=== PATIENT | male | born 1975 | race African-American/Black ===

== ENCOUNTER 2016-10-28 22:54 | Emergency (ER) | payer OTHER ==
[~2016-10-28] VITALS: Ht 182.9 cm; Wt 99.8 kg
[~2016-10-28 22:54] MED LIST: ACETAMINOPHEN-1 EAC1 PO; AMLODIPINE BESY10 MG PO; AMOXIL 875 MG875 M2 PO; AUGMENTIN 875875 MG PO; BACTRIM DS TAB1 EACH PO; CLOTRIMAZOLE-BE15 GM TOP; DOXYCYCLINE 10100 MG PO; FLEXERIL PO; IBUPROFEN 600600 M1 PO; KEFLEX500 MG PO; LISINOPRIL10 MG PO; LISINOPRIL20 MG PO; MINOCIN100 MG PO; NAPROSYN500 MG PO; NOHOMEMEDICATIONS; NORCO 5-325 TA1 EACH PO; PERCOCET 5-3251 EACH PO; PERCOCET PO; PHENERGAN-CODE120 ML PO; TRAMADOL 50 MG50 MG PO; TRINATAL GT TA1 EACH PO; TRINATE TABLET1 TAB PO; TYLENOL325 MG PO; ULTRAM 50MG TAB50 MG PO; UNICOMPLEX M TA1 TA1 PO; VITAMIN B-1100 M1 PO; ZPAK PO; [UNRECOGNIZED DRUG - REMARK]
== END 2016-10-29 00:32 | disposition home or self-care (01) ==
LOC: ER 22:54
DX: S51.802A Unspecified open wound of left forearm, initial encounter (principal); R60.9 Edema, unspecified; I10 Essential (primary) hypertension; F17.210 Nicotine dependence, cigarettes, uncomplicated; F15.10 Other stimulant abuse, uncomplicated; Z88.6 Allergy status to analgesic agent; W57.XXXA Bitten or stung by nonvenomous insect and other nonvenomous arthropods, initial encounter; Y93.89 Activity, other specified; Y92.89 Other specified places as the place of occurrence of the external cause; Y99.8 Other external cause status

== ENCOUNTER 2017-01-07 23:27 | Emergency (ER) | payer OTHER ==
[~2017-01-07] VITALS: Ht 172.7 cm; Wt 68.0 kg
[~2017-01-07 23:27] MED LIST changes: +FUROSEMIDE 20 M20 MG PO; +HYDROCODONE-AP1 EAC6 PO; +IBUPROFEN 800800 M1 PO; +LASIX 20 MG TAB20 MG; +LISINOPRIL20 MG
[2017-01-07] MEDS ORDERED: KEFLEX500 MG PO (23:38)
== END 2017-01-08 00:39 | disposition home or self-care (01) ==
LOC: ER 23:27
DX: L03.116 Cellulitis of left lower limb (principal); I10 Essential (primary) hypertension; F17.210 Nicotine dependence, cigarettes, uncomplicated; F10.99 Alcohol use, unspecified with unspecified alcohol-induced disorder; F15.10 Other stimulant abuse, uncomplicated; Z88.6 Allergy status to analgesic agent

== ENCOUNTER 2017-02-03 18:22 | Emergency (ER) | payer OTHER ==
[~2017-02-03] VITALS: Ht 182.9 cm; Wt 106.6 kg
[2017-02-03] MEDS ORDERED: NAPROSYN500 MG PO (20:31)
== END 2017-02-03 21:49 | disposition home or self-care (01) ==
LOC: ER 18:22
DX: M16.0 Bilateral primary osteoarthritis of hip (principal); F15.10 Other stimulant abuse, uncomplicated; I10 Essential (primary) hypertension; F17.210 Nicotine dependence, cigarettes, uncomplicated; F10.99 Alcohol use, unspecified with unspecified alcohol-induced disorder; Z88.6 Allergy status to analgesic agent

== ENCOUNTER 2017-03-12 02:06 | Emergency (ER) | payer OTHER ==
[~2017-03-12] VITALS: Ht 182.9 cm; Wt 86.2 kg
--- NOTE | ~2017-03-12 | EKG ---
[place] [address] [facility] [place] [address] ELECTROCARDIOGRAM REPORT Name: MARCELLEKELVIN Room #: [facility]#: [id number] Admission: 03/12/17 Attend Phys: Discharge: 03/12/17 Date of : 73 Report #: [id number] THIS REPORT FOR: //name// 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
[2017-03-12 03:00] LABS: HEMOGLOBIN 13.2 gm/dL (14.0-18.0); MCH 35.7 pg (26.0-34.0); MCV 108.2 fL (80.0-100.0); PLATELET COUNT 123 thou/uL (150-400); WBC 4.3 thou/uL (4.0-11.0)
[2017-03-12 03:01] LABS: MANUAL DIFF YES
[2017-03-12 03:09] LABS: ANION GAP 10 mmol/L (7-16); BUN 8 mg/dL (7-18); CALCIUM 8.8 mg/dL (8.5-10.1); CHLORIDE 103 mmol/L (98-107); CO2 27 mmol/L (21-32); CREATININE 0.9 mg/dL (0.7-1.3); GLUCOSE 158 mg/dL (74-106); POTASSIUM 3.2 mmol/L (3.5-5.1); SODIUM 140 mmol/L (136-145)
[2017-03-12 03:17] LABS: ALBUMIN 3.3 g/dL (3.4-5.0); ALKALINE PHOSPHATASE 92 U/L (46-116); MAGNESIUM 1.9 mg/dL (1.8-2.4); SGOT 141 U/L (15-37); SGPT 66 U/L (30-65); TOTAL BILIRUBIN 0.4 mg/dL (<0.1-1.0); TOTAL PROTEIN 7.8 g/dL (6.4-8.2); TROPONIN-I < 0.04 ng/mL (<0.04-0.07)
[2017-03-12 03:18] LABS: ABSOLUTE NEUTROPHILS 1.2 thou/uL (1.4-8.2); TOTAL CELL COUNT 100
[2017-03-12 03:19] LABS: MACROCYTES 2+
[2017-03-12] MEDS ORDERED: NAPROSYN500 MG PO (03:54)
== END 2017-03-12 06:25 | disposition home or self-care (01) ==
LOC: ER 02:06
PROVIDERS: Emergency Medicine
DX: G89.29 Other chronic pain (principal); M25.552 Pain in left hip; R60.0 Localized edema; F10.129 Alcohol abuse with intoxication, unspecified; D64.9 Anemia, unspecified; E87.6 Hypokalemia; D69.6 Thrombocytopenia, unspecified; I10 Essential (primary) hypertension; F17.210 Nicotine dependence, cigarettes, uncomplicated

== ENCOUNTER 2017-05-27 15:03 | Emergency (ER) | payer OTHER ==
[~2017-05-27] VITALS: Ht 182.9 cm; Wt 108.9 kg
[2017-05-27 15:05] VITALS: BP 139/86
== END 2017-05-27 17:56 | disposition home or self-care (01) ==
LOC: ER 15:03
DX: T14.8XXA Other injury of unspecified body region, initial encounter (principal); M25.561 Pain in right knee; M25.532 Pain in left wrist; F17.210 Nicotine dependence, cigarettes, uncomplicated; I10 Essential (primary) hypertension; F10.920 Alcohol use, unspecified with intoxication, uncomplicated; W19.XXXA Unspecified fall, initial encounter; Y93.89 Activity, other specified; Y92.89 Other specified places as the place of occurrence of the external cause; Y99.8 Other external cause status

== ENCOUNTER 2017-07-29 15:51 | Emergency (ER) | payer OTHER ==
[~2017-07-29] VITALS: Ht 182.9 cm; Wt 90.7 kg
[2017-07-29 16:19] VITALS: BP 142/85
== END 2017-07-29 17:29 | disposition home or self-care (01) ==
LOC: ER 15:51
DX: G89.29 Other chronic pain (principal); M25.551 Pain in right hip; I10 Essential (primary) hypertension; F17.210 Nicotine dependence, cigarettes, uncomplicated

== ENCOUNTER 2017-08-18 17:25 | Inpatient (IN) | payer OTHER ==
[~2017-08-18] VITALS: Ht 182.9 cm; Wt 107.5 kg
--- NOTE | ~2017-08-18 | HC ---
[facility] [place] [address] CONSULTATION Name: KELVIN IBANEZ Room #: 459-P ADM IN M.R.#: [id number] Admission: 08/18/17 Attend Phys: Isaac Lopez MD Discharge: Date of : 73 Report #: [id number] THIS REPORT FOR: //name// CC: NANETTE physician/PCP Isaac Lopez DATE OF SERVICE: 08/19/2017 INFECTIOUS DISEASE CONSULTATION ATTENDING PHYSICIAN: Isaac Lopez MD REASON FOR EVALUATION: Left distal lower extremity inflammatory eruption, probably multifactorial including infectious component. HISTORY OF PRESENT ILLNESS: Chart reviewed, patient examined. This is a 42-year-old gentleman with a history of recurrent skin and soft tissue infections involving his left lower extremity. He does have a tinea pedis. He does have a degree of neuropathy as well. He is not diabetic. 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 His living situation is somewhat unclear. He notes it has been several months to years since he was last hospitalized here dating back to 2014. He noted over the last several days, he had increasing pain and itching associated with the foot, it became progressive, subsequently evaluated and then admitted, felt to have a component of cellulitis. He was started on broad-spectrum antimicrobial therapy with vancomycin. 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 Not clearly he has had any fevers. Denies pulmonary or gastrointestinal related complaints. ALLERGIES: None known. MEDICINES: Include clotrimazole topically, famotidine, vancomycin, enoxaparin, oxycodone, ondansetron. PAST MEDICAL HISTORY: In addition to the above, some hypertension, depression. SOCIAL HISTORY: Smokes cigarettes on a daily basis, fairly regular ethanol, utilizes marijuana. FAMILY HISTORY: Noncontributory. REVIEW OF SYSTEMS: As above. PHYSICAL EXAMINATION: GENERAL: He is pleasant, alert, cooperative, appears somewhat chronically ill, though he is not overtly undernourished. VITAL SIGNS: Temperature 98.5, pulse 62, respirations 18, blood pressure [facility] [address] [place] [address] CONSULTATION Name: KELVIN IBANEZ Room #: [facility].#: [id number] Admission: 08/18/17 Attend Phys: Isaac Lopez MD Discharge: Date of : 73 Report #: [id number] 153/96. SKIN: Warm. HEENT: Unremarkable. LUNGS: Generally clear. HEART: Regular. ABDOMEN: Soft, nontender. EXTREMITIES: Left lower extremity distal has an inflammatory eruption that certainly consistent with tinea pedis, so concomitant erythrodermic type rash involving his foot and distal leg is tender. He does have good palpable pulses. GENITOURINARY: Deferred. RECTAL: Deferred. LABORATORY DATA: Electrolytes: Sodium 140, potassium 3.4, chloride 105, bicarbonate is 28, anion gap of 7, BUN and creatinine 11 and 1.0, estimated GFR is 99. Plain film of the foot, soft tissue swelling, no bony abnormality. CBC: White count of 4.2, H and H 13.7 and 40.2, platelets of 126. Venous Doppler of the lower extremities bilaterally showed no evidence of DVT. CRP of less than 2.0. Lactic acid 3.0. Hepatic function, AST of 212, ALT of 114, total protein of 7, albumin of 3.0. Culture collected from the site is pending. Gram stain showed gram-negative rods as well as gram-positive cocci. ASSESSMENT AND PLAN: Distal left lower extremity inflammatory eruption, likely multifactorial. Agree with antifungal treatments. We will see how he responds to that and may need systemic also antibacterial may well be polymicrobial. Obviously for gram-positive coverage, we will add second agent for gram-negative coverage. Secondly, he has a hepatitis unclear etiology, certainly given his past, we take the opportunity to exclude history of viral hepatitis disease. <ELECTRONICALLY SIGNED> By: Omar Adler MD 08/20/17 0756 09 22 Omar Adler MD /nt
[2017-08-18 17:34] VITALS: BP 120/81
[2017-08-18 18:01] LABS: HEMATOCRIT 40.2 % (42.0-52.0); HEMOGLOBIN 13.7 gm/dL (14.0-18.0); MCH 36.2 pg (26.0-34.0); MCV 106.6 fL (80.0-100.0); PLATELET COUNT 126 thou/uL (150-400); RBC 3.77 mil/uL (4.50-6.00); RDW 15.7 % (10.5-14.5); WBC 4.2 thou/uL (4.0-11.0)
[2017-08-18 18:07] LABS: CALCIUM 9.4 mg/dL (8.5-10.1); POTASSIUM 3.4 mmol/L (3.5-5.1)
[2017-08-18 18:33] LABS: ABSOLUTE NEUTROPHILS 1.8 thou/uL (1.4-8.2); MACROCYTES 1+
[2017-08-18 19:43] VITALS: BP 120/81
[2017-08-18 20:24] VITALS: BP 156/87
[2017-08-19 00:19] LABS: DIRECT BILIRUBIN 0.2 mg/dL (<0.1-0.3); TOTAL BILIRUBIN 0.4 mg/dL (<0.1-1.0)
[2017-08-19 04:11] VITALS: BP 152/97
[2017-08-19 08:00] VITALS: BP 137/94
[2017-08-19 16:00] VITALS: BP 153/96
[2017-08-19 22:33] VITALS: BP 182/110
[2017-08-20 04:15] VITALS: BP 148/103
[2017-08-20 04:30] LABS: CALCIUM 8.4 mg/dL (8.5-10.1); CREATININE 0.8 mg/dL (0.7-1.3); POTASSIUM 3.5 mmol/L (3.5-5.1)
[2017-08-20 05:59] LABS: HEMATOCRIT 37.5 % (42.0-52.0); HEMOGLOBIN 12.4 gm/dL (14.0-18.0); MCH 35.5 pg (26.0-34.0); MCHC 33.1 g/dL (28.0-37.0); MCV 107.3 fL (80.0-100.0); RBC 3.5 mil/uL (4.50-6.00); RDW 15.2 % (10.5-14.5); WBC 3.8 thou/uL (4.0-11.0)
[2017-08-20 09:42] VITALS: BP 159/110
[2017-08-20] MEDS ORDERED: KEFLEX500 M1 PO (14:00)
[2017-08-20] MEDS ORDERED: TRIAMCINOLONE A80 G2 TOP (14:01)
[2017-08-20] MEDS ORDERED: BACTRIM DS TAB1 EACH PO (14:01)
[2017-08-20] MEDS ORDERED: CLOTRIMAZOLE 1%15 G1 TOP (14:01)
[2017-08-20 14:19] VITALS: BP 159/110
[2017-08-20] MEDS ORDERED: PERCOCET PO (15:07)
[2017-08-21 15:07] LABS: HAV IgM AB (ANTI-HAV IgM) Negative (Negative); HEPATITIS B SURFACE AG Negative (Negative); HEPATITIS C VIRUS AB <0.1 (0.0-0.9)
== END 2017-08-20 19:44 | disposition home or self-care (01) | DRG 603 ==
LOC: ER 17:25 → EROBS 19:31 → 4S 20:10 → 4W 08-19 12:20
PROVIDERS: Hospitalist; Nurse Practitioner Acute Care; Physician Assistant; Specialist
DX: L03.116 Cellulitis of left lower limb (principal); I10 Essential (primary) hypertension; F17.210 Nicotine dependence, cigarettes, uncomplicated; I87.2 Venous insufficiency (chronic) (peripheral); Z59.0 Homelessness; F32.9 Major depressive disorder, single episode, unspecified
CPT/HCPCS: 10040; 10195

== ENCOUNTER 2017-09-01 00:21 | Emergency (ER) | payer OTHER ==
[~2017-09-01] VITALS: Ht 243.8 cm; Wt 108.9 kg
[~2017-09-01 00:21] MED LIST changes: +CLOTRIMAZOLE 1%15 G1 TOP; +KEFLEX500 M1 PO; +TRIAMCINOLONE A80 G2 TOP
[2017-09-01] MEDS ORDERED: TRIAMCINOLONE A80 G2 TOP (02:10)
[2017-09-01] MEDS ORDERED: BACTRIM DS TAB1 EACH PO (02:10)
[2017-09-01] MEDS ORDERED: CLOTRIMAZOLE 1%15 G1 TOP (02:10)
[2017-09-01] MEDS ORDERED: KEFLEX500 M1 PO (02:10)
== END 2017-09-01 05:30 | disposition home or self-care (01) ==
LOC: ER 00:21
DX: B35.3 Tinea pedis (principal); I10 Essential (primary) hypertension; F17.210 Nicotine dependence, cigarettes, uncomplicated

== ENCOUNTER 2017-10-31 15:47 | Emergency (ER) | payer OTHER ==
[~2017-10-31] VITALS: Ht 182.9 cm; Wt 104.3 kg
[2017-10-31] MEDS ORDERED: BACTRIM DS TAB1 EACH PO (17:18)
[2017-10-31] MEDS ORDERED: KEFLEX500 M1 PO (17:18)
[2017-10-31] MEDS ORDERED: LOTRIMIN AF12 GM TOP (17:18)
[2017-10-31] MEDS ORDERED: MOBIC15 MG PO (17:18)
== END 2017-10-31 18:06 | disposition home or self-care (01) ==
LOC: ER 15:47
DX: B35.3 Tinea pedis (principal); L03.116 Cellulitis of left lower limb; F17.210 Nicotine dependence, cigarettes, uncomplicated; M25.551 Pain in right hip; M25.552 Pain in left hip; M25.561 Pain in right knee; M25.562 Pain in left knee; M79.671 Pain in right foot; I10 Essential (primary) hypertension

== ENCOUNTER 2017-11-05 01:20 | Emergency (ER) | payer OTHER ==
[~2017-11-05] VITALS: Ht 182.9 cm; Wt 106.6 kg
[~2017-11-05 01:20] MED LIST changes: +LOTRIMIN AF12 GM TOP; +MOBIC15 MG PO
[2017-11-05] MEDS ORDERED: IBUPROFEN 600600 M1 PO (03:55)
== END 2017-11-05 04:15 | disposition home or self-care (01) ==
LOC: ER 01:20
DX: M25.551 Pain in right hip (principal); I10 Essential (primary) hypertension; F17.210 Nicotine dependence, cigarettes, uncomplicated; W10.9XXA Fall (on) (from) unspecified stairs and steps, initial encounter; Y93.89 Activity, other specified; Y92.89 Other specified places as the place of occurrence of the external cause; Y99.8 Other external cause status

== ENCOUNTER 2017-12-03 03:36 | Emergency (ER) | payer OTHER ==
[~2017-12-03] VITALS: Ht 182.9 cm; Wt 106.6 kg
[2017-12-03] MEDS ORDERED: NOHOMEMEDICATIONS (03:43)
[2017-12-03] MEDS ORDERED: CLINDAMYCIN HC300 MG PO (04:20)
[2017-12-03] MEDS ORDERED: ATHLETE'S FOOT15 GM TOP (04:20)
[2017-12-03] MEDS ORDERED: TRAMADOL 50 MG50 MG PO (04:57)
== END 2017-12-03 05:12 | disposition home or self-care (01) ==
LOC: ER 03:36
DX: L03.116 Cellulitis of left lower limb (principal); B35.3 Tinea pedis; I10 Essential (primary) hypertension; F17.210 Nicotine dependence, cigarettes, uncomplicated

== ENCOUNTER 2018-11-08 13:09 | Emergency (ER) | payer OTHER ==
[~2018-11-08] VITALS: Ht 182.9 cm; Wt 108.9 kg
[~2018-11-08 13:09] MED LIST changes: +ATHLETE'S FOOT15 GM TOP; +CLINDAMYCIN HC300 MG PO
[2018-11-08] MEDS ORDERED: NAPROSYN500 MG PO (14:56)
[2018-11-08 15:21] VITALS: BP 140/92
== END 2018-11-08 14:58 | disposition home or self-care (01) ==
LOC: ER 13:09
DX: M25.551 Pain in right hip (principal); R10.13 Epigastric pain; R10.11 Right upper quadrant pain; I10 Essential (primary) hypertension; F17.210 Nicotine dependence, cigarettes, uncomplicated

== ENCOUNTER 2020-02-19 22:53 | Inpatient (IN) | payer OTHER ==
[~2020-02-19] VITALS: Ht 182.9 cm; Wt 104.3 kg
[2020-02-19 23:09] VITALS: BP 143/93
[2020-02-20] MEDS ORDERED: ALEVE220 M1 PO ×2 (03:06)
[2020-02-20 08:06] VITALS: BP 148/92
--- NOTE | 2020-02-20 08:12 | NUR ---
ATTEMPTED TO CALL REPORT, WAS ADVISED THAT MARY BLACK WAS WITH PT HAVING ACTIVE CHEST PNB AND WOULD KAREY BACK SOON SHE WAS AVAILABLE, INFORMED CHARGE NURSE MARY QUINONES
[2020-02-20 11:43] VITALS: BP 154/89
--- NOTE | 2020-02-20 13:37 | NUR ---
Admitted patient from the ER due to suspected DVT, fall 4 weeks ago at 9am, transferred to room safely. Admission assessment, history and education done; admission forms signed. A+Ox4. On room air. Vital signs stable. On regular diet- tolerating well; no nausea, no vomiting and no abdominal pain noted. On telemetry; SR-SB; no complains of chest pain, crushing sensation and heaviness. Continent of bowel and bladder, able to go to the toilet with standby assist, able to use urinal as well. No IV noted- inserted IV at R FA- saline locked. Pt complained of pain, no other pain meds prescribed aside from tylenol which pt is refusing- Dr Reed informed. With history of ETOH and recent intake- verified with Dr Reed if to start CIWA monitoring- to start CIWA monitoring- pt scoring 2; no agitataion, signs and symptoms of withdrawal noted. To continue monitoring patient.
[2020-02-20 15:00] VITALS: BP 142/82; BP 154/89
--- NOTE | 2020-02-20 15:02 | NUR ---
TP ADMITTED REALTED TO R SUPERFICIAL FEM DVT. CM REVIEWED CHART AND SPOKE WITH CARE TEAM. CM CALLED AND SPOKE WITH PT THIS AFTERNOON. PT APPEARED TO BE A&O X4. CM ROLE INTRODUCED. PT INDICATED HE LIVES IN AN APARTMENT AT [address] [facility] [address] [address] [place] HE INDICATED THERE IS ELEVATOR ACCESS. PT INDCATED HE HADN'T BEEN USING ANY ASSISTIVE DEVICES PRIOR TO ADMISSION BUT HAD BEEN HAVING TROUBLE COMPLETEING ADLS. PT INDICATED HE HAD BEEN STAYING AT A [facility] WIHT HIS GF PRIOR TO ADMISSION AND THAT HE PLANNED TO GO BACK THERE UPON DC. PT INDICATED HE GOES TO [facility] FOR CARES IN THE COMMUNITY. PT WILL NEED CAB VOUCHER BACK TO EXTENDED STAY AT [address] [place] [address]. CM FILLED 30 DY FREE TRIAL OF ELIQUIS FOR PT THROUGH THE OUTPATIENT PHARMACY HERE AT THE HOSPITAL AND THE NURSE IS TO PROVIDE IT TO PT UPON DC. STELLA NOTIFIED PT THAT HE CAN CONTACT HIS [facility] FOR LABS UPON DC OR CAN GO TO [address] [facility] WALK IN CLINIC M-F.
[2020-02-20] MEDS ORDERED: ELIQUIS5 M1 PO ×2 (15:06)
[2020-02-20 20:19] VITALS: BP 171/85
[2020-02-21 05:54] LABS: HEMATOCRIT 40.5 % (42.0-52.0); HEMOGLOBIN 13.4 gm/dL (14.0-18.0); MCH 32.5 pg (26.0-34.0); MCV 98.4 fL (80.0-100.0); RBC 4.11 mil/uL (4.50-6.00); RDW 17.3 % (10.5-14.5); WBC 5.4 thou/uL (4.0-11.0)
[2020-02-21 05:58] LABS: APTT 33.7 Seconds (24.5-32.8); INR 1.1; PROTIME 11.4 Seconds (9.3-11.4)
[2020-02-21 06:11] LABS: CALCIUM 8.5 mg/dL (8.5-10.1); MAGNESIUM 1.9 mg/dL (1.8-2.4); POTASSIUM 3.6 mmol/L (3.5-5.1)
[2020-02-21 08:29] VITALS: BP 151/97
--- NOTE | 2020-02-21 10:46 | NUR ---
Received awake on bed. Due medications given as prescribed. A+Ox4. On room air. Vital signs stable. On regular diet- tolerating well; no nausea, no vomiting and no abdominal pain. On telemetry; no complains of chest pain, crushing sensation and heaviness; running SB at times. Continent of bowel and bladder, able to use urinal and go to the toilet with standby assist. Falls bundle in place due to history of fall. With SL at L FA. Complained of pain, due PRN pain meds given as prescribed. To continue monitoring patient. Pt seen and examined by Dr Reed- pt for discharge today- a/w orders.
--- NOTE | 2020-02-21 12:15 | NUR ---
ORDERS RECEIVED FOR PT EVAL AND TREAT. Pt LIVES IN [facility] WITH ELEVATOR ACCESS. HAD BEEN STAYING IN EXTENDED STAY [place] WITH HIS GIRLFRIEND AND PLANS TO RETURN THERE. RECENT FALL ABOUT 4 WEEKS AGO THAT HE STATED WAS AN 'ACCIDENT.' DOES NOT USE GAIT AIDS. Pt HAS BEEN UP SBA TO BATHROOM WITH NURSING STAFF Pt IS FALL RISK D/T RECENT FALL. Pt DECLINED NEED FOR PT AT THIS TIME. PLAN IS FOR Pt TO D/C TODAY. Pt HAS R LE SUPERFICIAL FEMORAL DVT AND IS ANTICOAGULATED. ACUTE PT TO SIGN OFF.
[2020-02-21] MEDS ORDERED: ACETAMINOPHEN325 M1 PO ×2 (12:26)
[2020-02-21] MEDS ORDERED: NORCO 7.5-3251 EACH PO ×2 (12:26)
[2020-02-21 12:38] VITALS: BP 151/97
== END 2020-02-21 13:59 | disposition home or self-care (01) | DRG 301 ==
LOC: ER 22:53 → EROBS 02-20 05:14 → 4W 02-20 09:26
PROVIDERS: ADMIT Internal Medicine; ATTEND Internal Medicine
DX: I82.411 Acute embolism and thrombosis of right femoral vein (principal); F10.10 Alcohol abuse, uncomplicated; Y90.9 Presence of alcohol in blood, level not specified; I82.431 Acute embolism and thrombosis of right popliteal vein; F12.10 Cannabis abuse, uncomplicated; F17.210 Nicotine dependence, cigarettes, uncomplicated; I10 Essential (primary) hypertension; Z79.899 Other long term (current) drug therapy
CPT/HCPCS: 10045

== ENCOUNTER 2020-02-22 23:30 | Emergency (ER) | payer OTHER ==
[~2020-02-22] VITALS: Ht 182.9 cm; Wt 103.0 kg
--- NOTE | ~2020-02-22 | EMS ---
[address] [address] EMS Patient Care Report Name: KELVIN IBANEZ Room #: REG KRISTAN Schilling#: [id number] Admission: 02/22/20 Attend Phys: Discharge: Date of : 73 Report #: [id number] THIS REPORT FOR: //name// Report Transmitted: 02/22/2020 23:06 EMS Care Summary [place], [place] Incident [id number] @ 02/22/2020 23:12 Incident Location [address] [place] [address] Patient KELVIN IBANEZ Male, 45 Years 1975 Patient Address [facility] [place] [address] Patient History Other,Deep Vein Thrombosis, Patient Allergies No known allergies, Patient Medications Eliquis, Chief Complaint LEG PAIN AND NAUSEA Disposition Transported No Lights/[place] Dispatch Reason Unknown Problem/Person Down Transported To [facility] Narrative RESPONDED TO UNKNOWN WITH PD EN ROUTE. UPON ARRIVAL PT FOUND STANDING AGAINST BUILDING ALERT AND ORIENTED. PT REPORTS TAKING NEW MEDS OF 2 DAYS AGO AND SAYS HE IS STILL SYMPTOMATIC. PT REPORTS PAIN IN UPPER RIGHT LEG AND NAUSEA.PT REPORTS HX OF BLOOD CLOTS IN LEG. PT BELIEVES HE WAS PRESCRIBED THE WRONG KIND [address] [address] EMS Patient Care Report Name: KELVIN IBANEZ Room #: REG KRISTAN Schilling#: [id number] Admission: 02/22/20 Attend Phys: Discharge: Date of : 73 Report #: [id number] OF MEDICATION(ELIQUIS) AND WANTS TO BE RE EVALUATED. PT WALKED TO [facility] AND VITALS OBTAINED. PT TRANSPORTED TO [facility] WITH NO CHANGE IN CONDITION. PT WALKED TO ED RM 6 AND SAT ON BED. REPORT GIVEN TO NURSE. Initial Vitals @23:20P: 96,R: 14,BP: 116/76,SpO2: 98, @23:27P: 96,R: 14,BP: 145/76,Pain: 4/10,GCS: 15,SpO2: 99,Revised Trauma: 12, Assessments @23:18MENTAL:Person Oriented,Time Oriented,Event Oriented,Place Oriented,SKIN:HEENT:Head/Face: No Abnormalities,Eyes: No Abnormalities,Neck/Airway: No Abnormalities,LUNG SOUNDS:General: Nausea,Left Upper: No Abnormalities,Right Upper: No Abnormalities,Left Lower: No Abnormalities,Right Lower: No Abnormalities,ABDOMEN:General: Nausea,Left Upper: No Abnormalities,Right Upper: No Abnormalities,Left Lower: No Abnormalities,Right Lower: No Abnormalities,PELVIS//GI:No Abnormalities,EXTREMITIES:Left Arm: No Abnormalities,Right Arm: No Abnormalities,Left Leg: No Abnormalities,Right Leg: No Abnormalities,PULSE:NEURO:No Abnormalities,@23:24MENTAL:Place Oriented,Person Oriented,Event Oriented,Time Oriented,SKIN:HEENT:Head/Face: No Abnormalities,Eyes: No Abnormalities,Neck/Airway: No Abnormalities,LUNG SOUNDS:General: No Abnormalities,Left Upper: No Abnormalities,Right Upper: No Abnormalities,Left Lower: No Abnormalities,Right Lower: No Abnormalities,ABDOMEN:General: No Abnormalities,Left Upper: No Abnormalities,Right Upper: No Abnormalities,Left Lower: No Abnormalities,Right Lower: No Abnormalities,PELVIS//GI:No Abnormalities,EXTREMITIES:Right Leg: Other,Left Arm: No Abnormalities,Right Arm: No Abnormalities,Left Leg: No Abnormalities,PULSE:NEURO:No Abnormalities, Impression Extremity Pain Procedures @23:18ALS AssessmentResponse: UnchangedSucceeded Timeline 23:10,Call Received 23:10,Dispatch Notified 23:12,Dispatched 23:14,En Route 23:17,On Scene 23:18,At Patient 23:18,ALS Assessment,Response: UnchangedSucceeded, 23:20,BP: 116/76 M,PULSE: 96,RR: 14 R,SPO2: 98 Ox,ETCO2: ,BG: ,PAIN: ,GCS: , 23:22,Depart Scene 23:27,BP: 145/76 M,PULSE: 96,RR: 14 R,SPO2: 99 Ox,ETCO2: ,BG: ,PAIN: 4,GCS: 15, [address] [address] EMS Patient Care Report Name: KELVIN IBANEZ Room #: REG Tonie#: [id number] Admission: 02/22/20 Attend Phys: Discharge: Date of : 73 Report #: [id number] 23:28,At Destination 23:38,Call Closed Disclaimer v1.1 Copyright 2020 [employer] This EMS Care Summary contains data elements from the applicable legal record (which may be displayed differently). It is designed to provide pertinent information for the following purposes: continuity of care, clinical quality, and state data reporting. The complete legal record is available to ED staff and administrators of the receiving hospital in [email or web address]'s Patient Tracker. All data is provided "as is."
[~2020-02-22 23:30] MED LIST changes: +ACETAMINOPHEN325 M1 PO; +ALEVE220 M1 PO; +ELIQUIS5 M1 PO; +NORCO 7.5-3251 EACH PO
[2020-02-23] MEDS ORDERED: ZOFRAN ODT4 MG PO (01:33)
[2020-02-23 01:51] VITALS: BP 127/76
== END 2020-02-23 02:21 | disposition home or self-care (01) ==
LOC: ER 23:30
DX: I82.411 Acute embolism and thrombosis of right femoral vein (principal); I10 Essential (primary) hypertension; F17.210 Nicotine dependence, cigarettes, uncomplicated; Z79.899 Other long term (current) drug therapy

== ENCOUNTER 2020-04-02 11:38 | Emergency (ER) | payer OTHER ==
[~2020-04-02] VITALS: Ht 182.9 cm; Wt 108.9 kg
[~2020-04-02 11:38] MED LIST changes: +ZOFRAN ODT4 MG PO
[2020-04-02 13:01] LABS: ABSOLUTE NEUTROPHILS 4.6 thou/uL (1.4-8.2); BASOPHILS 1.3 % (0.0-2.0); EOSINOPHILS 2.3 % (0.0-3.0); HEMATOCRIT 40.8 % (42.0-52.0); HEMOGLOBIN 13.5 gm/dL (14.0-18.0); LYMPHOCYTES 28.2 % (24.0-44.0); MCH 33.9 pg (26.0-34.0); MCHC 33.1 g/dL (28.0-37.0); MCV 102.2 fL (80.0-100.0); MONOCYTES 11.5 % (1.0-8.0); PLATELET COUNT 228 thou/uL (150-400); POLYS 56.7 % (36.0-66.0); RBC 3.99 mil/uL (4.50-6.00); RDW 17.3 % (10.5-14.5); WBC 8.1 thou/uL (4.0-11.0)
[2020-04-02 13:05] LABS: CALCIUM 8.4 mg/dL (8.5-10.1); CREATININE 1.2 mg/dL (0.7-1.3); POTASSIUM 3.8 mmol/L (3.5-5.1)
[2020-04-02 13:11] LABS: ALBUMIN 3.7 g/dL (3.4-5.0); TOTAL BILIRUBIN 0.8 mg/dL (0.2-1.0); TOTAL PROTEIN 8.3 g/dL (6.4-8.2)
[2020-04-02 13:12] LABS: APTT 25.2 Seconds (24.5-32.8); PROTIME 10.1 Seconds (9.3-11.4)
[2020-04-02 13:50] LABS: URINE BILIRUBIN NEGATIVE (Negative); URINE BLOOD NEGATIVE (Negative); URINE CLARITY CLEAR; URINE COLOR YELLOW; URINE GLUCOSE-RANDOM* NEGATIVE (Negative); URINE KETONES 1+ (Negative); URINE LEUKOCYTES-REFLEX NEGATIVE (Negative); URINE NITRITE-REFLEX NEGATIVE (Negative); URINE PROTEIN (DIPSTICK) NEGATIVE (Negative); URINE SPECIFIC GRAVITY >= 1.030 (1.005-1.035)
[2020-04-02] MEDS ORDERED: ULTRAM 50MG TAB50 MG PO (13:56)
[2020-04-02 14:02] VITALS: BP 124/70
== END 2020-04-02 14:10 | disposition home or self-care (01) ==
LOC: ER 11:38
PROVIDERS: Nurse Practitioner
DX: S30.0XXA Contusion of lower back and pelvis, initial encounter (principal); M25.551 Pain in right hip; I10 Essential (primary) hypertension; F17.210 Nicotine dependence, cigarettes, uncomplicated; Z79.899 Other long term (current) drug therapy; W11.XXXA Fall on and from ladder, initial encounter; Y93.89 Activity, other specified; Y92.89 Other specified places as the place of occurrence of the external cause; Y99.8 Other external cause status

== ENCOUNTER 2020-07-08 13:07 | Emergency (ER) | payer OTHER ==
[~2020-07-08] VITALS: Ht 195.6 cm; Wt 104.3 kg
[2020-07-08] MEDS ORDERED: ULTRAM 50MG TAB50 MG PO (14:18)
[2020-07-08 14:30] VITALS: BP 156/105
== END 2020-07-08 14:53 | disposition home or self-care (01) ==
LOC: ER 13:07
DX: S22.31XA Fracture of one rib, right side, initial encounter for closed fracture (principal); F17.210 Nicotine dependence, cigarettes, uncomplicated; I10 Essential (primary) hypertension; W01.0XXA Fall on same level from slipping, tripping and stumbling without subsequent striking against object, initial encounter; Y93.89 Activity, other specified; Y92.89 Other specified places as the place of occurrence of the external cause; Y99.9 Unspecified external cause status

== ENCOUNTER 2020-07-13 17:08 | Emergency (ER) | payer OTHER ==
[~2020-07-13] VITALS: Ht 195.6 cm; Wt 104.3 kg
[2020-07-13] MEDS ORDERED: AZITHROMYCIN 2250 MG PO (18:17)
[2020-07-13 19:45] VITALS: BP 117/68
== END 2020-07-13 19:45 | disposition home or self-care (01) ==
LOC: ER 17:08
DX: S22.31XD Fracture of one rib, right side, subsequent encounter for fracture with routine healing (principal); M25.551 Pain in right hip; F10.129 Alcohol abuse with intoxication, unspecified; I10 Essential (primary) hypertension; F17.210 Nicotine dependence, cigarettes, uncomplicated; Z20.828 Contact with and (suspected) exposure to other viral communicable diseases; Z79.899 Other long term (current) drug therapy; W19.XXXA Unspecified fall, initial encounter; Y93.89 Activity, other specified; Y92.89 Other specified places as the place of occurrence of the external cause; Y99.8 Other external cause status; Y90.9 Presence of alcohol in blood, level not specified

== ENCOUNTER 2020-08-01 15:39 | Emergency (ER) | payer OTHER ==
[~2020-08-01] VITALS: Ht 195.6 cm; Wt 104.3 kg
[~2020-08-01 15:39] MED LIST changes: +AZITHROMYCIN 2250 MG PO
[2020-08-01 16:02] LABS: ABSOLUTE NEUTROPHILS 1.9 thou/uL (1.4-8.2); BASOPHILS 1.8 % (0.0-2.0); EOSINOPHILS 1.8 % (0.0-3.0); HEMATOCRIT 43.1 % (42.0-52.0); LYMPHOCYTES 45.7 % (24.0-44.0); MCH 32.6 pg (26.0-34.0); MCHC 32.4 g/dL (28.0-37.0); MCV 100.8 fL (80.0-100.0); MONOCYTES 11.6 % (1.0-8.0); PLATELET COUNT 132 thou/uL (150-400); POLYS 39.1 % (36.0-66.0); RBC 4.28 mil/uL (4.50-6.00); RDW 17.1 % (10.5-14.5)
[2020-08-01 16:11] LABS: CALCIUM 8.5 mg/dL (8.5-10.1); POTASSIUM 3.6 mmol/L (3.5-5.1)
[2020-08-01 18:17] VITALS: BP 160/87
== END 2020-08-01 18:30 | disposition home or self-care (01) ==
LOC: ER 15:39
PROVIDERS: Nurse Practitioner
DX: M79.671 Pain in right foot (principal); I10 Essential (primary) hypertension; F17.210 Nicotine dependence, cigarettes, uncomplicated; Z79.1 Long term (current) use of non-steroidal anti-inflammatories (NSAID); Z79.899 Other long term (current) drug therapy; Z59.0 Homelessness

== ENCOUNTER 2020-11-09 18:25 | Emergency (ER) | payer OTHER ==
[~2020-11-09] VITALS: Ht 165.1 cm; Wt 106.6 kg
[2020-11-09 21:06] LABS: ANION GAP 13 mmol/L (7-16); BUN 11 mg/dL (7-18); CALCIUM 8.8 mg/dL (8.5-10.1); CHLORIDE 105 mmol/L (98-107); CO2 21 mmol/L (21-32); CREATININE 0.8 mg/dL (0.7-1.3); GLUCOSE 75 mg/dL (74-106); POTASSIUM 4.1 mmol/L (3.5-5.1); SODIUM 139 mmol/L (136-145)
[2020-11-09 21:13] LABS: ALBUMIN 2.7 g/dL (3.4-5.0); LIPASE 134 U/L (73-393); SGOT 43 U/L (15-37); SGPT < 6 U/L (30-65); TOTAL BILIRUBIN 0.7 mg/dL (0.2-1.0); TOTAL PROTEIN 7.7 g/dL (6.4-8.2)
[2020-11-09 21:40] LABS: ABSOLUTE NEUTROPHILS 3.3 thou/uL (1.4-8.2); BASOPHILS 1.5 % (0.0-2.0); EOSINOPHILS 3.8 % (0.0-3.0); HEMOGLOBIN 12.6 gm/dL (14.0-18.0); LYMPHOCYTES 27.3 % (24.0-44.0); MCH 35.2 pg (26.0-34.0); MCV 103.6 fL (80.0-100.0); MONOCYTES 13.3 % (1.0-8.0); PLATELET COUNT 125 thou/uL (150-400); POLYS 54.1 % (36.0-66.0); RBC 3.57 mil/uL (4.50-6.00); RDW 14.9 % (10.5-14.5); WBC 6.2 thou/uL (4.0-11.0)
[2020-11-09] MEDS ORDERED: ZOFRAN ODT4 MG PO (21:45)
[2020-11-10 01:00] VITALS: BP 132/68
== END 2020-11-09 23:27 | disposition home or self-care (01) ==
LOC: ER 18:25
PROVIDERS: Emergency Medicine
DX: R11.2 Nausea with vomiting, unspecified (principal); R10.9 Unspecified abdominal pain; M25.559 Pain in unspecified hip; I10 Essential (primary) hypertension; F17.210 Nicotine dependence, cigarettes, uncomplicated; Z86.14 Personal history of Methicillin resistant Staphylococcus aureus infection; Z79.2 Long term (current) use of antibiotics; Z79.899 Other long term (current) drug therapy

== ENCOUNTER 2021-02-27 10:50 | Emergency (ER) | payer OTHER ==
[~2021-02-27] VITALS: Ht 182.9 cm; Wt 104.3 kg
--- NOTE | ~2021-02-27 | EMS ---
[address] [address] EMS Patient Care Report Name: KELVIN IBANEZ Room #: DEP KRISTAN Schilling#: [id number] Admission: 02/27/21 Attend Phys: Discharge: 02/27/21 Date of : 73 Report #: [id number] THIS REPORT FOR: //name// Report Transmitted: 03/02/2021 10:22 EMS Care Summary [place], [place]/[facility] Incident [id number] @ 02/27/2021 10:29 Incident Location [address] [place], [place] [id number] Patient KELVIN IBANEZ Male, 46 Years 1975 Patient Address [address] [id number] Patient History Hypertension (HTN),Substance Abuse,Arthritis,Alcohol Abuse,Hip Replacement, Patient Allergies No known allergies, Patient Medications None Reported, Chief Complaint RIGHT HIP PAIN Disposition Transported No Lights/[place] Dispatch Reason Sick Person Transported To [facility] Narrative UPON ARRIVAL WE FOUND OUR 46 YEAR OLD MALE PATIENT, WITH A HX OF CHRONIC RIGHT HIP PAIN X 10 YEARS, 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 THE PATIENT REQUESTS [facility] [address] [place] [address] EMS Patient Care Report Name: KELVIN IBANEZ Room #: DEP ER Tonie#: [id number] Admission: 02/27/21 Attend Phys: Discharge: 02/27/21 Date of : 73 Report #: [id number] TRANSPORT TO [facility] FOR EVALUATION. Initial Vitals @10:35P: 80,R: 18,BP: 156/85,Pain: 4/10,GCS: 15,SpO2: 94,Revised Trauma: 12, @10:47P: 76,R: 18,BP: 154/80,Pain: 4/10,GCS: 15,SpO2: 95,Revised Trauma: 12, Assessments @10:35MENTAL:Place Oriented,Person Oriented,Event Oriented,Time Oriented,SKIN:HEENT:Eyes: Right Pupil: 4-mm,Eyes: Left Pupil: 4-mm,Head/Face: No Abnormalities,Neck/Airway: No Abnormalities,LUNG SOUNDS:General: No Abnormalities,ABDOMEN:General: No Abnormalities,PELVIS//GI:No Abnormalities,EXTREMITIES:Right Leg: Other,Left Arm: No Abnormalities,Right Arm: No Abnormalities,Left Leg: No Abnormalities,PULSE:Pedal: 2+ Normal,Radial: 2+ Normal,NEURO:No Abnormalities, Impression Extremity Pain Procedures @10:35ALS AssessmentResponse: UnchangedSucceeded Timeline 10:26,Call Received 10:26,Dispatch Notified 10:29,Dispatched 10:30,En Route 10:34,On Scene 10:35,At Patient 10:35,ALS Assessment,Response: UnchangedSucceeded, 10:35,BP: 156/85 M,PULSE: 80,RR: 18 R,SPO2: 94 Ox,ETCO2: ,BG: ,PAIN: 4,GCS: 15, 10:40,Depart Scene 10:47,BP: 154/80 M,PULSE: 76,RR: 18 R,SPO2: 95 Ox,ETCO2: ,BG: ,PAIN: 4,GCS: 15, 10:47,At Destination 10:51,Call Closed Disclaimer v1.1 Copyright 2020 [employer] This EMS Care Summary contains data elements from the applicable legal record (which may be displayed differently). It is designed to provide pertinent information for the following purposes: continuity of care, clinical quality, and state data reporting. The complete legal record is available to ED staff and administrators of the receiving hospital in [place]'s Patient Tracker. All data is provided "as is."
[2021-02-27] MEDS ORDERED: NAPROSYN500 MG PO (13:53)
[2021-02-27] MEDS ORDERED: TESSALON PERLE100 MG PO (13:54)
[2021-02-27 14:06] VITALS: BP 132/84
== END 2021-02-27 14:06 | disposition home or self-care (01) ==
LOC: ER 10:50
PROVIDERS: Emergency Medicine
DX: M13.851 Other specified arthritis, right hip (principal); Z20.822 Contact with and (suspected) exposure to COVID-19; M54.50 Low back pain, unspecified; R05.9 Cough, unspecified; I10 Essential (primary) hypertension; F10.11 Alcohol abuse, in remission; F17.210 Nicotine dependence, cigarettes, uncomplicated

== ENCOUNTER 2021-03-22 00:49 | Emergency (ER) | payer OTHER ==
[~2021-03-22] VITALS: Ht 182.9 cm; Wt 106.6 kg
--- NOTE | ~2021-03-22 | EMS ---
[address] [address] EMS Patient Care Report Name: KELVIN IBANEZ Room #: REG RKISTAN Schilling#: [id number] Admission: 03/22/21 Attend Phys: Discharge: Date of : 73 Report #: [id number] THIS REPORT FOR: //name// Report Transmitted: 03/22/2021 00:41 EMS Care Summary [place], [place] Incident [id number] @ 03/22/2021 00:22 Incident Location [address] [place] [address] Patient KELVIN IBANEZ Male, 46 Years 1975 Patient Address [address] [place], [place] [id number] Patient History Hypertension (HTN),Substance Abuse,Arthritis,Alcohol Abuse,Hip Replacement, Patient Allergies No known allergies, Patient Medications None Reported, Chief Complaint PAIN IN BOTH HIPS Disposition Transported No Lights/[place] Dispatch Reason Sick Person Transported To [facility] Narrative M36 ARRIVED ON SCENE AND FOUND OUR PT WALKING OUT OF A GAS STATION TO THE AMBULANCE. THE PT STATED HE HAD PAIN IN BOTH HIPS THAT HE HAD BEEN EXPERIENCING FOR APPROX. 2 HOURS PRIOR TO CALLING EMS. THE PT STATED HE HAD FALLEN ON SOME STEPS, WHICH IT WAS UNDETERMINED WHEN THIS FALL TOOK PLACE THE PT COULD NOT [address] [address] EMS Patient Care Report Name: KELVIN IBANEZ Room #: [facility] Tonie#: [id number] Admission: 03/22/21 Attend Phys: Discharge: Date of : 73 Report #: [id number] RECALL. THE PT WAS AMBULATORY AND ABLE TO WALK INTO THE AMBULANCE. THE PT WAS ABLE TO SEAT HIMSELF IN THE SEATS OF THE BACK OF THE AMBULANCE WHERE SEATBELTS AND A SURGICAL MASK WERE APPLIED. VITALS TAKEN. WHILE EN ROUTE TO [facility] THE PT WAS UNCHANGED. UPON OUR ARRIVAL AT THE FACILITY THE PT WAS ABLE TO WALK HIMSELF TO THEIR TRIAGE AREA AND SEAT HIMSELF. REPORT GIVEN TO NURSE. Initial Vitals @00:39P: 73,R: 15,BP: 158/135,Pain: 2/10,GCS: 15,SpO2: 97,Revised Trauma: 12, @00:34P: 70,R: 15,BP: 118/78,Pain: 2/10,GCS: 15,SpO2: 98,Revised Trauma: 12, Assessments @00:32MENTAL:Person Oriented,Place Oriented,Event Oriented,Time Oriented,SKIN:HEENT:Head/Face: No Abnormalities,Neck/Airway: No Abnormalities,LUNG SOUNDS:General: No Abnormalities,Left Upper: No Abnormalities,Right Upper: No Abnormalities,Left Lower: No Abnormalities,Right Lower: No Abnormalities,ABDOMEN:General: No Abnormalities,Left Upper: No Abnormalities,Right Upper: No Abnormalities,Left Lower: No Abnormalities,Right Lower: No Abnormalities,PELVIS//GI:Pelvis Other,EXTREMITIES:Capillary Refill: Right Upper: < 2 Sec,Left Leg: DEMETRIUS,Right Leg: DEMETRIUS,Left Arm: No Abnormalities,Right Arm: No Abnormalities,PULSE:Radial: 2+ Normal,NEURO:No Abnormalities, Impression Generalized Weakness Procedures @00:32 ALS Assessment Response: UnchangedSucceeded @00:32 BLS Assessment Response: Unchanged Timeline 00:21,Call Received 00:21,Dispatch Notified 00:22,Dispatched 00:23,En Route 00:31,On Scene 00:32,At Patient 00:32,ALS Assessment,Response: UnchangedSucceeded, 00:32,BLS Assessment,Response: Unchanged 00:34,BP: 118/78 M,PULSE: 70,RR: 15 R,SPO2: 98 Ox,ETCO2: ,BG: ,PAIN: 2,GCS: 15, 00:36,Depart Scene 00:39,BP: 158/135 M,PULSE: 73,RR: 15 R,SPO2: 97 Ox,ETCO2: ,BG: ,PAIN: 2,GCS: 15, 00:46,At Destination 01:08,Call Closed [address] [address] EMS Patient Care Report Name: KELVIN IBANEZ Room #: REG CamillaUbaldo#: [id number] Admission: 03/22/21 Attend Phys: Discharge: Date of : 73 Report #: [id number] Disclaimer v1.1 Copyright 2020 [email or web address] This EMS Care Summary contains data elements from the applicable legal record (which may be displayed differently). It is designed to provide pertinent information for the following purposes: continuity of care, clinical quality, and state data reporting. The complete legal record is available to ED staff and administrators of the receiving hospital in [facility]'s Patient Tracker. All data is provided "as is."
[~2021-03-22 00:49] MED LIST changes: +TESSALON PERLE100 MG PO
[2021-03-22 01:54] VITALS: BP 140/88
== END 2021-03-22 01:54 | disposition home or self-care (01) ==
LOC: ER 00:49
DX: M54.50 Low back pain, unspecified (principal); I10 Essential (primary) hypertension; F10.10 Alcohol abuse, uncomplicated; F17.210 Nicotine dependence, cigarettes, uncomplicated

== ENCOUNTER 2021-06-14 03:38 | Emergency (ER) | payer OTHER ==
[~2021-06-14] VITALS: Ht 175.3 cm; Wt 77.1 kg
--- NOTE | ~2021-06-14 | EMS ---
[address] [address] EMS Patient Care Report Name: KELVIN IBANEZ Room #: DEP KRISTAN Schilling#: [id number] Admission: 06/14/21 Attend Phys: Discharge: 06/14/21 Date of : 73 Report #: [id number] THIS REPORT FOR: //name// Report Transmitted: 06/15/2021 06:22 EMS Care Summary [place], [place] Incident [id number] @ 06/14/2021 03:06 Incident Location [address] [place] [address] Patient KELVIN IBANEZ Male, 46 Years 1975 Patient Address [address] [address] Patient History Hypertension (HTN),Substance Abuse,Arthritis,Alcohol Abuse,Hip Replacement, Patient Allergies No known allergies, Patient Medications None Reported, Chief Complaint RIGHT LEG PAIN Disposition Transported No Lights/[place] Dispatch Reason Unknown Problem/Person Down Transported To [facility] Narrative AFTER POLICE SECURED THE SCENE, WE ARRIVED AT TO MEET OFFICERS WITH PT IN FRONT OF STORE. PT COMPLAINED OF RIGHT LEG PAIN RADIATING FROM KNEE UP TO HIP. PT DENIED FALLING AND HAD NO IDEA OF WHAT CAUSED THE PAIN. WE ASSISTED PT TO THE AMBULANCE TO AND SECURED HIM ON THE BENCH WITH A SAFETY BELT AND HE SAT [address] [address] EMS Patient Care Report Name: KELVIN IBANEZ Room #: DEP [facility]#: [id number] Admission: 06/14/21 Attend Phys: Discharge: 06/14/21 Date of : 73 Report #: [id number] SECURED FOR THE DURATION OF THE TRANSPORT W/O COMPLICATION TO [facility]. UPON ARRIVAL, WE ESCORTED PT TO TRIAGE AREA AND TRANSFERRED CARE AND GAVE REPORT TO MARY CONDE THEN CLEARED THE CALL. Initial Vitals @03:25P: 102,R: 18,BP: 141/90,Pain: 10/10,GCS: 15,Glucose: 114,SpO2: 97,Revised Trauma: 12, @03:30P: 102,R: 18,BP: 140/92,Pain: 10/10,GCS: 15,SpO2: 98,Revised Trauma: 12, Assessments @03:41MENTAL:Place Oriented,Event Oriented,Time Oriented,Person Oriented,SKIN:HEENT:LUNG SOUNDS:ABDOMEN:PELVIS//GI:Unstable,EXTREMITIES:Right Leg: Weakness,Right Leg: Other,PULSE:Radial: 2+ Normal,NEURO: Impression Extremity Pain Procedures @03:41 BLS Assessment Response: Unchanged Timeline 03:04,Call Received 03:04,Dispatch Notified 03:06,Dispatched 03:08,En Route 03:23,On Scene 03:23,At Patient 03:25,BP: 141/90 M,PULSE: 102,RR: 18 R,SPO2: 97 Ox,ETCO2: ,B,PAIN: 10,GCS: 15, 03:30,Depart Scene 03:30,BP: 140/92 M,PULSE: 102,RR: 18 R,SPO2: 98 Ox,ETCO2: ,BG: ,PAIN: 10,GCS: 15, 03:34,At Destination 03:41,BLS Assessment,Response: Unchanged 03:57,Call Closed Disclaimer v1.1 Copyright 2021 [employer] This EMS Care Summary contains data elements from the applicable legal record (which may be displayed differently). It is designed to provide pertinent information for the following purposes: continuity of care, clinical quality, and state data reporting. The complete legal record is available to ED staff and administrators of the receiving hospital in [place]'s Patient Tracker. All data is provided "as is."
[2021-06-14 03:53] VITALS: BP 145/88
[2021-06-14] MEDS ORDERED: MEDROLDOSEPACK PO (04:04)
== END 2021-06-14 05:06 | disposition home or self-care (01) ==
LOC: ER 03:38
DX: G89.29 Other chronic pain (principal); M25.551 Pain in right hip; M79.604 Pain in right leg; I10 Essential (primary) hypertension; F17.210 Nicotine dependence, cigarettes, uncomplicated

== ENCOUNTER 2021-07-21 13:12 | Emergency (ER) | payer OTHER ==
[~2021-07-21] VITALS: Ht 182.9 cm; Wt 104.3 kg
[~2021-07-21 13:12] MED LIST changes: +MEDROLDOSEPACK PO
[2021-07-21 13:36] LABS: ABSOLUTE NEUTROPHILS 3.1 thou/uL (1.4-8.2); BASOPHILS 1.1 % (0.0-2.0); EOSINOPHILS 0.2 % (0.0-3.0); HEMATOCRIT 44.3 % (42.0-52.0); HEMOGLOBIN 14.9 gm/dL (14.0-18.0); LYMPHOCYTES 36.5 % (24.0-44.0); MCH 32.8 pg (26.0-34.0); MCHC 33.6 g/dL (28.0-37.0); MCV 97.8 fL (80.0-100.0); MONOCYTES 11.9 % (1.0-8.0); PLATELET COUNT 171 thou/uL (150-400); POLYS 50.3 % (36.0-66.0); RBC 4.53 mil/uL (4.50-6.00); RDW 15.3 % (10.5-14.5); WBC 6.2 thou/uL (4.0-11.0)
[2021-07-21 13:43] LABS: CREATININE 1.1 mg/dL (0.7-1.3); POTASSIUM 3.2 mmol/L (3.5-5.1)
[2021-07-21 13:54] LABS: ALBUMIN 3.9 g/dL (3.4-5.0); DIRECT BILIRUBIN 0.2 mg/dL (<0.1-0.2); TOTAL BILIRUBIN 0.8 mg/dL (0.2-1.0); TOTAL PROTEIN 8.9 g/dL (6.4-8.2)
[2021-07-21] MEDS ORDERED: PEPCID20 MG PO (14:34)
--- NOTE | 2021-07-21 14:36 | EKG ---
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1975 Requested By: Gunnar Ryder Order Number: [id number] MD: Khalif Lerma Measurements Intervals [place] Rate: 70 P: 71 NH: 147 QRS: 62 QRSD: 105 T: 55 QT: 400 QTc: 432 Interpretive Statements Sinus rhythm ST elev, probable normal early repol pattern Compared to ECG 03/12/2017 03:42:20 No significant changes Electronically Signed On 07-21-2021 14:36:28 PRODUCTION COORDINATOR by Khalif Lerma [email or web address] <ELECTRONICALLY SIGNED> By: Khalif Lerma MD, [facility] 07/21/21 1436 1328 1328 Khalif Lerma MD, FACC /EPI
[2021-07-21 14:53] VITALS: BP 164/99
== END 2021-07-21 16:18 | disposition home or self-care (01) ==
LOC: ER 13:12
PROVIDERS: Student in an Organized Health Care Education/Training Program
DX: R10.13 Epigastric pain (principal); R11.2 Nausea with vomiting, unspecified; F17.210 Nicotine dependence, cigarettes, uncomplicated; I10 Essential (primary) hypertension